=== PATIENT | female | born 1970 | race Two or more races ===

== ENCOUNTER 2017-03-11 05:47 | Emergency (ER) | payer OTHER ==
--- NOTE | 2017-03-11 06:57 | ER Document Report ---
ED GI/ - General Mode of Arrival: Ambulatory Information source: Patient TRAVEL OUTSIDE OF THE [place] IN LAST 30 DAYS: No - HPI Patient complains to provider of: Abdominal pain. No: Vomiting Timing/Duration: Waxing and waning Location: LLQ, RLQ, Low back Associated symptoms: Other - see above Exacerbated by: Standing, Movement, Walking <STEFF LERNER - Last Filed: 03/11/17 07:31> <LELE KELLY - Last Filed: 03/11/17 13:50> - General Chief Complaint: Flank Pain Stated Complaint: RIGHT FLANK PAIN Time Seen by Provider: 03/11/17 06:42 Notes: Patient is a 46 year old female who presents to the ED with complaints of lower abdominal pain (worse in RLQ) and low back pain with onset this morning that woke her up from her sleep. Patient states it is painful to walk and she couldn 't stand up straight due to the pain. Patients adds that the patient was lightheaded secondary to the pain and felt like she was going to pass out. Patient states the pain is exacerbated by walking and movement. She states her abdomen is tender to the touch. She denies nausea or vomiting or vaginal discharge. Her last normal menstrual period was 1 week ago. She denies any radiation down her legs. Patient had 1 episode of dysuria 2 days ago. Patient has no pertinent medical history. Patient states a couple months ago she experienced similar symptoms but they resolved and she passed it off as gas. (STEFF LERNER) - Related Data Allergies/Adverse Reactions: No Known Allergies Allergy (Verified 03/11/17 07:30) Home Medications: Current Home Medications Loratadine [Claritin 10 mg Tablet] 10 mg PO DAILY 03/11/17 [History] Past Medical History - General Information source: Patient - Social History Smoking Status: Never Smoker Frequency of alcohol use: None Drug Abuse: None Family History: Reviewed & Not Pertinent Pulmonary Medical History: Reports: Hx Pneumonia Renal/ Medical History: Denies: Hx Peritoneal Dialysis GI Medical History: Reports: Hx Gastroesophageal Reflux Disease Past Surgical History: Reports: Hx Section - x2 - Immunizations Immunizations up to date: Yes Hx Diphtheria, Pertussis, Tetanus Vaccination: Yes <STEFF LERNER - Last Filed: 03/11/17 07:31> Review of Systems - Review of Systems Constitutional: No symptoms reported EENT: No symptoms reported Cardiovascular: See HPI, Lightheaded - secondary to pain Respiratory: No symptoms reported Gastrointestinal: See HPI, Abdominal pain - right side, and entire lower abdomen. denies: Nausea, Vomiting Genitourinary: No symptoms reported Female Genitourinary: See HPI, Last menstrual period - last week. denies: Vaginal discharge Musculoskeletal: See HPI, Back pain - low back Skin: No symptoms reported Hematologic/Lymphatic: No symptoms reported Neurological/Psychological: No symptoms reported <STEFF LERNER - Last Filed: 03/11/17 07:31> Physical Exam - General General appearance: Alert - HEENT Head: Normocephalic, Atraumatic Eyes: Normal Extraocular movements intact: Yes Pupils: PERRL - Respiratory Respiratory status: No respiratory distress Breath sounds: Normal - Cardiovascular Rhythm: Regular Heart sounds: Normal auscultation Murmur: No - Abdominal Inspection: Other - no peritoneal signs Distension: No distension Tenderness: Tender - RLQ and LLQ tenderness to palpation - Back Back: Normal. No: CVA tenderness - Extremities General upper extremity: Normal inspection, Normal ROM General lower extremity: Normal inspection, Normal ROM. No: Edema - Neurological Neuro grossly intact: Yes - Psychological Associated symptoms: Normal affect, Normal mood - Skin Skin Temperature: Warm Skin Moisture: Dry Skin Color: Normal <STEFF LERNER - Last Filed: 03/11/17 07:31> - Vital signs Vitals: Temp Pulse Resp BP Pulse Ox 97.7 F 80 16 102/67 100 03/11/17 05:48 03/11/17 05:48 03/11/17 05:48 03/11/17 05:48 03/11/17 05:48 Course - Laboratory Result Diagrams: 03/11/17 06:34 03/11/17 06:34 <STEFF LERNER - Last Filed: 03/11/17 07:31> - Laboratory Result Diagrams: 03/11/17 06:34 03/11/17 06:34 <LELE KELLY - Last Filed: 03/11/17 13:50> - Re-evaluation Re-evalutation: 03/11/17 12:00 Very pleasant 46-year-old female with lower abdominal pain. Initially, the complaint was of right sided pain, but this appears to be more anterior and she has discomfort across her lower abdomen, pelvic area. Patient does not have peritoneal signs. I have low suspicion for appendicitis. It is unclear what is causing her discomfort. She denies any vaginal discharge or bleeding. Her laboratory results are overall unremarkable. As I believe this is an atypical situation for her, we will perform a CT scan to further evaluate for low likely appendicitis, possible inflammatory bowel, or other issues. CT pending. 03/11/17 13:39 CT scan shows questionable thickening of sections of the sigmoid colon. The remainder of the CT exam appears unremarkable. Normal appendix. She does have some uterine fibroids. The possibility of thickening of the sigmoid colon matches clinically with some of her complaints. This appears to be overall a mild situation of possible colitis. We will place her on metronidazole and asked her to follow-up with her primary physician early next week. I discussed this result and treatment plan with the patient and her significant other. They understand and appreciate the treatment. (LELE KELLY) - Vital Signs Vital signs: Temp Pulse Resp BP Pulse Ox 97.7 F 80 16 102/67 100 03/11/17 05:51 03/11/17 05:51 03/11/17 05:51 03/11/17 05:51 03/11/17 05:51 - Laboratory Laboratory results interpreted by me: 03/11/17 03/11/17 06:34 06:34 Hgb 11.1 L MCV 73 L MCH 22.3 L MCHC 30.7 L RDW 15.1 H Chloride 109 H Discharge <STEFF LERNER - Last Filed: 03/11/17 07:31> <LELE KELLY - Last Filed: 03/11/17 13:50> - Discharge Clinical Impression: Colitis Condition: Good Disposition: HOME, SELF-CARE Instructions: Colitis, Nonspecific ([facility]) Additional Instructions: Your CT scan showed some thickening of your sigmoid colon. This may explain the discomfort you have been having. Take Flagyl (metronidazole) Motta a day for a week. Follow-up with your primary physician early this coming week. Return to the emergency department if you have uncontrolled pain, fever, or other urgent concerns. Prescriptions: Metronidazole 500 mg PO BID 7 Days #14 tablet Scribe Documentation - Scribe Written by Kristyn:: kristyn Zacarias, 03/11/2017, 712 acting as scribe for :: Cliff <STEFF LERNER - Last Filed: 03/11/17 07:31>
[2017-03-11] MEDS ORDERED: NORMAL SALINE 1000 ML 1,000 ML IV PRN (07:03)
[2017-03-11 07:09] LABS: ABSOLUTE BASOPHILS # (AUTO) 0.1 10^3/uL (0.0-0.2); ABSOLUTE EOSINOPHILS # (AUTO) 0.2 10^3/uL (0.0-0.6); ABSOLUTE MONOCYTES (AUTO) 0.3 10^3/uL (0.1-1.4); ABSOLUTE NEUT (AUTO) 2.8 10^3/uL (1.7-8.2); HEMOGLOBIN 11.1 g/dL (12.0-15.5); HGB HCT DIFFERENCE -2.7; LYMPHOCYTES % (AUTO) 37.9 % (13-45); MEAN CORPUSCULAR HEMOGLOBIN 22.3 pg (27.0-33.4); MEAN CORPUSCULAR HGB CONC 30.7 g/dL (32.0-36.0); MEAN CORPUSCULAR VOLUME 73 fl (80-97); MONOCYTES % (AUTO) 6.3 % (3-13); RED BLOOD COUNT 4.97 10^6/uL (3.72-5.28); RED CELL DISTRIBUTION WIDTH 15.1 % (11.5-14.0); SEGMENTED NEUTROPHILS % (AUTO) 51.8 % (42-78); WHITE BLOOD COUNT 5.3 10^3/uL (4.0-10.5)
[2017-03-11 07:23] LABS: ALANINE AMINOTRANSFERASE 24 U/L (9-52); ALBUMIN 3.7 g/dL (3.5-5.0); ALKALINE PHOSPHATASE 55 U/L (38-126); ANION GAP 8 (5-19); ASPARTATE AMINO TRANSFERASE 19 U/L (14-36); BILIRUBIN,DIRECT 0.3 mg/dL (0.0-0.4); BILIRUBIN,TOTAL 0.4 mg/dL (0.2-1.3); BLOOD UREA NITROGEN 7 mg/dL (7-20); CALCIUM 9.2 mg/dL (8.4-10.2); CARBON DIOXIDE 24 mmol/L (22-30); CHLORIDE 109 mmol/L (98-107); CREATININE RESULT 0.52 mg/dL (0.52-1.25); GLUCOSE 88 mg/dL (75-110); POTASSIUM 4.3 mmol/L (3.6-5.0); SODIUM 140.6 mmol/L (137-145); TOTAL PROTEIN 6.4 g/dL (6.3-8.2)
[2017-03-11 07:57] LABS: APPEARANCE,URINE SLIGHTLY-CLOUDY; BILIRUBIN,URINE NEGATIVE (NEGATIVE); GLUCOSE, URINE NEGATIVE (NEGATIVE); KETONES,URINE NEGATIVE (NEGATIVE); LEUKOCYTE ESTERASE,URINE NEGATIVE (NEGATIVE); NITRITE,URINE NEGATIVE (NEGATIVE); PROTEIN,URINE NEGATIVE (NEGATIVE); URINE SPECIFIC GRAVITY 1.006; UROBILINOGEN,URINE NEGATIVE mg/dL (<2.0)
--- NOTE | 2017-03-11 13:09 | RADIOLOGY REPORT (SQ) ---
EXAM DESCRIPTION: CT ABD/PELVIS WITH IV ORAL COMPLETED DATE/TIME: 03/11/2017 12:50 pm REASON FOR STUDY: lower abdominal pain COMPARISON: None. TECHNIQUE: CT scan of the abdomen and pelvis performed using helical scanning technique with dynamic intravenous contrast injection. Oral contrast. Images reviewed with lung, soft tissue, and bone win dows. Reconstructed coronal and sagittal MPR images reviewed. Delayed images for evaluation of the ur inary system also acquired. All images stored on PACS. All CT scanners at this facility use dose modulation, iterative reconstruction, and/or weight based d osing when appropriate to reduce radiation dose to as low as reasonably achievable (ALARA). [facility]: Dose Right [facility]: CareDose [facility]: Dose Right [facility]: Teradose 4D [facility]: [employer] CONTRAST TYPE AND DOSE: contrast/concentration: Isovue 370.00 mg/ml; Total Contrast Delivered: 62.0 ml; Total Saline Delivered: 65.0 ml RENAL FUNCTION: Creatinine 0.5 BUN 7 RADIATION DOSE: Up-to-date CT equipment and radiation dose reduction techniques were employed. CTDIv ol: 5.3 - 7.1 mGy. DLP: 628 mGy-cm.. LIMITATIONS: None. FINDINGS: LOWER CHEST: No significant findings. No nodules or infiltrates. LIVER: Normal size. No masses. No dilated ducts. SPLEEN: Normal size. No focal lesions. PANCREAS: No masses. No significant calcifications. No adjacent inflammation or peripancreatic fluid collections. Pancreatic duct not dilated. GALLBLADDER: No identified stones by CT criteria. No inflammatory changes to suggest cholecystitis. ADRENAL GLANDS: No significant masses or asymmetry. RIGHT KIDNEY AND URETER: No solid masses. No significant calcifications. No hydronephrosis or hyd roureter. LEFT KIDNEY AND URETER: No solid masses. No significant calcifications. No hydronephrosis or hydr oureter. AORTA AND VESSELS: No aneurysm. No dissection. Renal arteries, SMA, celiac without stenosis. RETROPERITONEUM: No retroperitoneal adenopathy, hemorrhage or masses. BOWEL AND PERITONEAL CAVITY: There is questionable thickening of portions of the wall of the sigmoid colon. APPENDIX: The appendix is normal. PELVIS: The urinary bladder is normal. The uterus is somewhat heterogeneous, suggesting the presence of some small fibroids. There is no adnexal mass or fluid collection. There is no free fluid. ABDOMINAL WALL: No masses. No hernias. BONES: No significant or acute findings. OTHER: No other significant finding. IMPRESSION: 1. Questionable thickening of portions of the wall of the sigmoid colon. Is there clin ical evidence of or history of inflammatory bowel disease? 2. There appear to be some small uterine fibroids. 3. The appendix is normal. 4. There is no urinary pathology. TECHNICAL DOCUMENTATION: JOB ID: [id number] Quality ID # [id number]: Final reports with documentation of one or more dose reduction techniques (e.g., Au tomated exposure control, adjustment of the mA and/or kV according to patient size, use of iterative reconstruction technique) 2010 [employer]- All Rights Reserved
[2017-03-11 13:59] VITALS: BP 110/61
== END 2017-03-11 13:58 | disposition home or self-care (01) ==
LOC: ER 05:47
DX: K52.9 Noninfective gastroenteritis and colitis, unspecified (principal); R10.30 Lower abdominal pain, unspecified; R10.31 Right lower quadrant pain; R30.0 Dysuria; Z79.899 Other long term (current) drug therapy
CPT/HCPCS: 99284; 96360; 96361; 36415; 85025; 80053; 81001; 74177; J7030

== ENCOUNTER → 2018-02-11 | Outpatient (CLI) | payer OTHER ==
--- NOTE | 2018-02-11 16:22 | RADIOLOGY REPORT (SQ) ---
EXAM DESCRIPTION: CT FACIAL AREA WITHOUT COMPLETED DATE/TIME: 02/11/2018 3:55 pm REASON FOR STUDY: CHRONIC SINUSITIS J32.9 CHRONIC SINUSITIS, UNSPECIFIED COMPARISON: None. TECHNIQUE: Noncontrasted images through the facial bones and orbits windowed for bone and soft tissu e. Additional coronal and sagittal reconstructed images reviewed. All images stored on PACS. All CT scanners at this facility use dose modulation, iterative reconstruction, and/or weight based d osing when appropriate to reduce radiation dose to as low as reasonably achievable (ALARA). [facility]: Dose Right [facility]: CareDose [facility]: Dose Right [facility]: Teradose 4D [facility]: [employer] RADIATION DOSE: mGy. LIMITATIONS: None. FINDINGS: FACIAL BONES: No fracture or bone lesion. ORBITS: Intact. No fracture. Symmetric intact globes and retroorbital soft tissues. PARANASAL SINUSES: Clear. No significant mucosal thickening, mass or fluid. No nasal polyps. Maxill terri sinus outlets are patent. SOFT TISSUES: No mass or edema. INFERIOR BRAIN: Limited view. No acute findings. OTHER: No other significant finding. IMPRESSION: NO ACUTE FINDINGS. TECHNICAL DOCUMENTATION: JOB ID: [id number] Quality ID # [id number]: Final reports with documentation of one or more dose reduction techniques (e.g., Au tomated exposure control, adjustment of the mA and/or kV according to patient size, use of iterative reconstruction technique) 2010 [employer]- All Rights Reserved Reading location - IP/workstation name: [email or web address]
== END ==
LOC: RAD 15:35
PROVIDERS: ATTEND Internal Medicine
DX: J32.9 Chronic sinusitis, unspecified (principal)
CPT/HCPCS: 70486

== ENCOUNTER → 2018-06-10 | Outpatient (CLI) | payer OTHER ==
--- NOTE | 2018-06-10 09:29 | RADIOLOGY REPORT (SQ) ---
EXAM DESCRIPTION: C SP 4 OR 5 VIEWS COMPLETED DATE/TIME: 06/10/2018 9:22 am REASON FOR STUDY: OTHER SHOULDER LESIONS,LEFT SHOULDER D64.9 ANEMIA, UNSPECIFIED R10.9 UNSPECIFIED ABDOMINAL PAIN E55.9 VITAMIN D DEFICIENCY, UNSPECIFIED COMPARISON: None. NUMBER OF VIEWS: Five views. TECHNIQUE: AP, lateral, obliques and odontoid radiographic images acquired of the cervical spine. LIMITATIONS: None. FINDINGS: MINERALIZATION: Normal. ALIGNMENT: Anatomic. VERTEBRAE: Vertebral bodies of normal height. DISCS: No significant osteophytes or sclerosis. Disc height maintained. FORAMINA: No osteophytes or foraminal narrowing. LATERAL AND POSTERIOR ELEMENTS: Facets, lateral masses and spinous processes without significant find ings. HARDWARE: None in the spine. SOFT TISSUES: No masses or calcifications. Lung apices clear. OTHER: No other significant finding. IMPRESSION: NO SIGNIFICANT RADIOGRAPHIC FINDING IN THE CERVICAL SPINE. TECHNICAL DOCUMENTATION: JOB ID: [id number] [employer]- All Rights Reserved Reading location - IP/workstation name: [email or web address]
--- NOTE | 2018-06-10 09:29 | RADIOLOGY REPORT (SQ) ---
EXAM DESCRIPTION: SHOULDER LEFT 2 OR MORE VIEWS COMPLETED DATE/TIME: 06/10/2018 9:22 am REASON FOR STUDY: OTHER SHOULDER LESIONS,LEFT SHOULDER D64.9 ANEMIA, UNSPECIFIED R10.9 UNSPECIFIED ABDOMINAL PAIN E55.9 VITAMIN D DEFICIENCY, UNSPECIFIED COMPARISON: None. NUMBER OF VIEWS: Three views. TECHNIQUE: Internal rotation, external rotation, and Y view images acquired of the left shoulder. LIMITATIONS: None. FINDINGS: MINERALIZATION: Normal. BONES: No acute fracture or dislocation. No worrisome bone lesions. JOINTS: No dislocation. VISUALIZED LUNGS AND RIBS: No pneumothorax. No rib fracture. SOFT TISSUES: No radiopaque foreign body. OTHER: No other significant finding. IMPRESSION: NEGATIVE STUDY OF THE LEFT SHOULDER. NO RADIOGRAPHIC EVIDENCE OF ACUTE INJURY. TECHNICAL DOCUMENTATION: JOB ID: [id number] [employer]- All Rights Reserved Reading location - IP/workstation name: [email or web address]
[2018-06-10 09:38] LABS: ABSOLUTE EOSINOPHILS # (AUTO) 0.2 10^3/uL (0.0-0.6); ABSOLUTE LYMPHOCYTES (AUTO) 1.6 10^3/uL (0.5-4.7); ABSOLUTE MONOCYTES (AUTO) 0.3 10^3/uL (0.1-1.4); ABSOLUTE NEUT (AUTO) 3.2 10^3/uL (1.7-8.2); BASOPHILS % (AUTO) 0.8 % (0-2); EOSINOPHILS % (AUTO) 3.1 % (0-6); HEMATOCRIT 37.6 % (36.0-47.0); LYMPHOCYTES % (AUTO) 29.5 % (13-45); MEAN CORPUSCULAR HEMOGLOBIN 22.5 pg (27.0-33.4); MEAN CORPUSCULAR HGB CONC 31.9 g/dL (32.0-36.0); MEAN CORPUSCULAR VOLUME 70 fl (80-97); MONOCYTES % (AUTO) 5.9 % (3-13); PLATELET COUNT 223 10^3/uL (150-450); RED BLOOD COUNT 5.34 10^6/uL (3.72-5.28); RED CELL DISTRIBUTION WIDTH 14.3 % (11.5-14.0); SEGMENTED NEUTROPHILS % (AUTO) 60.7 % (42-78); TOTAL CELLS COUNTED % (AUTO) 100 %; WHITE BLOOD COUNT 5.3 10^3/uL (4.0-10.5)
[2018-06-10 09:41] LABS: APPEARANCE,URINE SLIGHTLY-CLOUDY; BILIRUBIN,URINE NEGATIVE (NEGATIVE); COLOR,URINE YELLOW; GLUCOSE, URINE NEGATIVE (NEGATIVE); KETONES,URINE NEGATIVE (NEGATIVE); LEUKOCYTE ESTERASE,URINE NEGATIVE (NEGATIVE); NITRITE,URINE NEGATIVE (NEGATIVE); PROTEIN,URINE NEGATIVE (NEGATIVE); URINE SPECIFIC GRAVITY 1.016; UROBILINOGEN,URINE NEGATIVE mg/dL (<2.0)
[2018-06-10 10:00] LABS: ALANINE AMINOTRANSFERASE 19 U/L (9-52); ALBUMIN 4.4 g/dL (3.5-5.0); ALKALINE PHOSPHATASE 68 U/L (38-126); ANION GAP 12 (5-19); ASPARTATE AMINO TRANSFERASE 24 U/L (14-36); BILIRUBIN,DIRECT 0.2 mg/dL (0.0-0.4); BILIRUBIN,TOTAL 0.3 mg/dL (0.2-1.3); BLOOD UREA NITROGEN 9 mg/dL (7-20); CALCIUM 9.8 mg/dL (8.4-10.2); CARBON DIOXIDE 24 mmol/L (22-30); CHLORIDE 108 mmol/L (98-107); CHOLESTEROL 288.17 mg/dL (0-200); GLUCOSE 95 mg/dL (75-110); POTASSIUM 4.7 mmol/L (3.6-5.0); TOTAL PROTEIN 7.6 g/dL (6.3-8.2); TRIGLYCERIDES 275 mg/dL (<150)
[2018-06-10 10:11] LABS: DIRECT LDL 172 mg/dL (<100)
== END ==
LOC: OD 08:42
PROVIDERS: ATTEND Internal Medicine
DX: D64.9 Anemia, unspecified (principal); R10.9 Unspecified abdominal pain; E55.9 Vitamin D deficiency, unspecified; E03.9 Hypothyroidism, unspecified; M75.82 Other shoulder lesions, left shoulder
CPT/HCPCS: 36415; 72050; 80053; 80061; 81001; 82306; 84443; 85025